=== PATIENT | female | born 1995 | race African-American/Black ===

== ENCOUNTER 2024-07-26 11:16 | Emergency (ER) | payer SELFPAY ==
[2024-07-26 11:27] VITALS: BP 141/99
--- NOTE | 2024-07-26 12:22 | ED.GENMED ---
History of Present Illness
General
Chief Complaint: Headache
Source: patient
Exam Limitations: none
Time Seen by Provider: 07/26/24 12:09
History of Present Illness
History of Present Illness:
29yoF with a history of a concussion in May 2024 presenting for evaluation of a headache. Patient had a syncopal episode in the bathroom in May. She hit her head at that time. She was seen at [facility] after the incident and had a CT
head which was reportedly normal. She was diagnosed with a concussion. She followed up with her PCP who gave her off of work for 1 week. She has been having some lingering symptoms since then including dizziness. She started to have a posterior
headache about a week ago. She states the pain initially felt like a numbness sensation and felt like her hair was being raked. The pain has been worsening since yesterday evening. She has tried ibuprofen without much relief. She also reports
nausea and photophobia. No fevers, neck stiffness, recent head injuries.
Phy Exam
Physical Exam
Physical Exam:
Sitting in a dark room with eyes closed
General Physical Exam
General Presentation: well appearing and no apparent distress
General age: appears stated age
General Skin: warm and dry
General Habitus: normal
General Mental: alert
ENT Exam
ENT Exam: neck supple and normocephalic
Additional ENT: No meningismus
Pulmonary Exam
Pulmonary Exam: no respiratory distress
Neurological Exam
Neurological Exam: alert and no motor deficits
Jamie Coma Scale
Eye Opening: Spontaneous
Verbal Response: Oriented
Motor Response: Obeys Commands
GCS Total Score: 15
Skin Exam
Skin Exam: normal color and warm/dry
Psychiatric Exam
Psychiatric Exam: normal mood/affect
Course
Orders/Labs/Results
Orders:
Orders
07/26/24 12:22
0.9% Sodium Chloride 1000 ml [Nss] 1,000 ml IV BOLUS
Acetaminophen [Tylenol] 1,000 mg PO NOW STA
Dexamethasone Sod Phosphate [Decadron] 10 mg IV NOW STA
Ketorolac [Toradol] 15 mg IV NOW STA
Ondansetron Injectable [Zofran] 4 mg IV NOW STA
Vital Signs
Initial and Last Documented VS:
Initial Vital Signs
Temp Pulse Resp BP Pulse Ox
98.4 F 69 18 141/99 99
07/26/24 11:27 07/26/24 11:27 07/26/24 11:27 07/26/24 11:27 07/26/24 11:27
Last Documented Vital Signs
Temp Pulse Resp BP Pulse Ox
98.4 F 63 20 113/62 99
07/26/24 11:27 07/26/24 14:59 07/26/24 14:59 07/26/24 14:59 07/26/24 11:27
MDM/Problems Addressed
Differential Diagnosis Includes:
29yoF here with a headache x 1 week that has been worsening since last night. Hx of concussion [address] head reportedly normal after injury. C/o ongoing dizziness/nausea. Has been seen by PCP. VSS. She is sitting in a dark room with eyes
closed on exam. No meningismus or focal neuro deficits. Differential diagnosis includes but is not limited to: postconcussive syndrome, tension headache, migraine
Initial ED plan: IV migraine cocktail and reassess.
*Critical Care Note
Total Time (30-74mins, 75-104mins- exclusive of procedures): Not Applicable
Update Note
Update Note:
Patient feeling much better on reassessment. Headache is now a 3/10 in severity and photophobia has resolved. She is requesting discharge. Supportive care discussed and prescription given for Zofran. Advised f/u with PCP and neurology. ED return
precautions discussed. She expressed understanding and was discharged in stable condition.
ED Attending Note
-
Portions of this chart may have been created with voice recognition software.� Occasional wrong word or��sound alike� substitutions may have occurred due to the inherent limitations of voice recognition software.
Discharge Plan
Departure
Patient Disposition: Home (Routine Discharge)
Date of Disposition: 07/26/24
Time of Disposition: 14:57
Patient with high blood pressure during this ER visit?: Yes
Discharge Problem:
Acute nonintractable headache
Instructions: Headache, Adult (DC)
Prescriptions:
New
ondansetron 4 mg tablet,disintegrating
4 mg PO Q6H PRN (Reason: nausea and vomiting) Qty: 20 0RF
Referrals:
Kade Santana MD [Active] -
Ashley Moctezuma MD [Family Provider] -
Activity Restrictions/Additional Instructions:
Drink plenty of fluids. Take Zofran as needed for nausea. Take ibuprofen and Excedrin as needed for headaches.
Please follow-up with your family doctor and neurology.
Return to the ER with any new or worsening symptoms.
Interventions
Interventions:
*Risk Screen - Suicide Last Done: 07/26/24 11:27
*General Assessment Last Done: 07/26/24 11:27
*Neglect/Abuse Screening Last Done: 07/26/24 11:27
*ED COVID-19 Vaccine History Last Done: 07/26/24 13:36
*Nursing Disposition Last Done: 07/26/24 15:05
ED- Neurological Assessment Last Done: 07/26/24 13:37
Discharge Date and Time
Discharge Date/Time: 07/26/24 15:05
Print Language: BANGLADESHI
[2024-07-26 13:12] VITALS: BMI 44.8
[2024-07-26] MEDS: TYLENOL 1000 MG PO (13:13)
[2024-07-26] MEDS: TORADOL 15 MG IV (13:20)
[2024-07-26] MEDS: DECADRON 10 MG IV (13:24)
[2024-07-26] MEDS: ZOFRAN 4 MG IV (13:24)
[2024-07-26] MEDS: NSS 1000 IV (13:25)
[2024-07-26 14:59] VITALS: BP 113/62
== END 2024-07-26 15:05 | disposition home or self-care (01) ==
LOC: EMR 11:16
PROVIDERS: EMERGENCY PHYSICIAN Emergency Medicine; FAMILY PHYSICIAN Internal Medicine
DX: R51.9 Headache, unspecified (principal); Z87.828 Personal history of other (healed) physical injury and trauma
CPT/HCPCS: 96374; 96375; 96361; 99284